=== PATIENT | female | born 1990 | race Caucasian/White ===

== ENCOUNTER 2016-09-20 18:14 | Emergency (ER) | payer OTHER ==
[2016-09-20] MEDS ORDERED: AZITHROMYCIN 250 MG TAB PO STA (19:15)
[2016-09-20] MEDS ORDERED: cefTRIAXone 250 MG VIAL IM STA (19:15)
[2016-09-20 19:17] LABS: Amorphous Sediment,Urine Occasional /hpf; Appearance,Urine Cloudy (Clear); Bacteria,Urine Rare /hpf; Bilirubin,Urine Negative (Negative); Glucose,Urine (UA) Negative (Negative); Ketones,Urine Negative (Negative); Leukocyte Esterase,Urine Negative (Negative); Mucus,Urine Few /hpf; Nitrite,Urine Negative (Negative); PH, Urine 5.5 (5.0-8.0); Particle Count 8822; Protein,Urine Negative (Negative); RBC,Urine 1 /hpf (0-5); Squamous Epithelial Cell,Urine 19 /hpf (0-4); UA Billing (MACRO vs. MICRO) MICRO; Urobilinogen,Urine <2.0 mg/dL (<2.0); WBC,Urine 23 /hpf (0-5)
--- NOTE | 2016-09-20 19:20 | ED ---
Female Urogenital HPI - General Chief complaint: Urogenital Stated complaint: possible STD Time Seen by Provider: 09/20/16 18:43 Source: patient, RN notes reviewed Mode of arrival: ambulatory Limitations: no limitations - History of Present Illness Initial comments: 25-year-old female presented emergency department with chief complaint of possible STD. Patient states that she had sexual and course a few days ago and her partner was positive for Chlamydia yesterday. Patient states is unprotected sex. Patient states she does have mild discharge at this time. Denies any dysuria or hematuria. Patient denies any abdominal pain and she has no history of STDs. Last Menstrual Period: 09/15/16 - Related Data Previous Rx's Medication Instructions Recorded Polymyxin B-Trimethoprim Ophth 2 drops RIGHT EYE Q4H 7 Days 01/02/16 [Polytrim Opthalmic] Allergies Allergy/AdvReac Type Severity Reaction Status Date / Time No Known Allergies Allergy Verified 09/20/16 18:42 Review of Systems ROS Statement: Those systems with pertinent positive or pertinent negative responses have been documented in the HPI. ROS Other: All systems not noted in ROS Statement are negative. Past Medical History Past Medical History: No Reported History History of Any Multi-Drug Resistant Organisms: None Reported Past Surgical History: Section Additional Past Surgical History / Comment(s): D&C Past Psychological History: ADD/ADHD, Depression Smoking Status: Never smoker Past Alcohol Use History: None Reported Past Drug Use History: None Reported General Exam Limitations: no limitations General appearance: alert, in no apparent distress Head exam: Present: atraumatic, normocephalic, normal inspection Respiratory exam: Present: normal lung sounds bilaterally. Absent: respiratory distress, wheezes, rales, rhonchi, stridor Cardiovascular Exam: Present: regular rate, normal rhythm, normal heart sounds. Absent: systolic murmur, diastolic murmur, rubs, gallop, clicks GI/Abdominal exam: Present: soft, normal bowel sounds. Absent: distended, tenderness, guarding, rebound, rigid External exam: Present: normal external exam, other (Exam performed with Cynthia MICHAEL) Speculum exam: Present: cervical discharge (Purulent slightly blood-tinged) Back exam: Absent: CVA tenderness (R), CVA tenderness (L) Skin exam: Present: warm, dry, intact, normal color. Absent: rash Course Vital Signs 09/20/16 18:38 Temperature 98.6 F Pulse Rate 75 Respiratory 16 Rate Blood Pressure 125/76 O2 Sat by Pulse 100 Oximetry Medical Decision Making - Medical Decision Making 25-year-old female presented emergency from for STD check. Patient was treated for Chlamydia diarrhea at this time. Patient did have cultures and urinalysis. Return parameters were discussed. - Lab Data Lab Results 09/20/16 Range/Units 19:01 Urine HCG, Qual Not Detected (Not Detectd) Disposition Clinical Impression: Cervical discharge, Exposure to STD Disposition: HOME SELF-CARE Condition: Stable Instructions: Chlamydia (ED), Sexually Transmitted Diseases (ED) Additional Instructions: Please return to the Emergency Department if symptoms worsen or any other concerns. Referrals: Hoang Hebert MD [Primary Care Provider] - 1-2 days Time of Disposition: 19:19
[2016-09-20 19:58] VITALS: BP 141/60; PULSE 74; RESP 18; TEMP 97
== END 2016-09-20 19:57 | disposition home or self-care (01) ==
LOC: EC 18:14
DX: N89.8 Other specified noninflammatory disorders of vagina (principal); Z20.2 Contact with and (suspected) exposure to infections with a predominantly sexual mode of transmission
CPT/HCPCS: 87591; 87491; 81001; 81025; 87808; 87086; 99283; 96372; J0696

== ENCOUNTER → 2017-02-21 | Outpatient (CLI) | payer OTHER | END | disposition home or self-care (01) | LOC: LABWHC1 10:56 | PROVIDERS: ATTEND Obstetrics & Gynecology | DX: N91.2 Amenorrhea, unspecified (principal) | CPT/HCPCS: 36415; 84702 ==

== ENCOUNTER → 2017-02-23 | Outpatient (CLI) | payer OTHER | END | disposition home or self-care (01) | LOC: LABWHC1 09:38 | PROVIDERS: ATTEND Obstetrics & Gynecology | DX: N92.6 Irregular menstruation, unspecified (principal) | CPT/HCPCS: 36415; 84702 ==

== ENCOUNTER 2017-02-28 15:57 | Emergency (ER) | payer OTHER ==
--- NOTE | 2017-02-28 18:25 | ED ---
General Adult HPI - General Chief complaint: Abdominal Pain Stated complaint: early /cramping Time Seen by Provider: 02/28/17 18:18 Source: patient, RN notes reviewed Mode of arrival: ambulatory Limitations: no limitations - History of Present Illness Initial comments: 26-year-old female who is a presents to the emergency Department chief complaint of cramping and . Patient states she's had the cramping for about 3 days. Patient states she's about 5 or 6 weeks . She denies any nausea vomiting any vaginal bleeding or change in discharge. She states that the cramping is just in the center of her abdomen. She states she's not having workup for at this time she is only for about a week. patient states that she was concerned due to the continued cramping so she thought that she should be evaluated. Patient denies any recent fever, chills, shortness of breath, chest pain, back pain, nausea vomiting, numbness or tingling, dysuria or hematuria, constipation or diarrhea, headaches or visual changes, or any other current symptoms. - Related Data Home Medications Medication Instructions Recorded Confirmed No Known Home Medications [No 02/28/17 02/28/17 Known Home Medications] Allergies Allergy/AdvReac Type Severity Reaction Status Date / Time No Known Allergies Allergy Verified 02/28/17 19:04 Review of Systems ROS Statement: Those systems with pertinent positive or pertinent negative responses have been documented in the HPI. ROS Other: All systems not noted in ROS Statement are negative. Past Medical History Past Medical History: No Reported History History of Any Multi-Drug Resistant Organisms: None Reported Past Surgical History: Section Additional Past Surgical History / Comment(s): D&C Past Psychological History: ADD/ADHD, Depression Smoking Status: Never smoker Past Alcohol Use History: None Reported Past Drug Use History: None Reported General Exam - General Exam Comments Initial Comments: General: The patient is awake and alert, in no distress, and does not appear acutely ill. Eye: Pupils are equal, round and reactive to light, extra-ocular movements are intact; there is normal conjunctiva bilaterally. No signs of icterus. Ears, nose, mouth and throat: There are moist mucous membranes. Neck: The neck is supple, there is no tenderness. Cardiovascular: There is a regular rate and rhythm. No murmur, rub or gallop is appreciated. Respiratory: Lungs are clear to auscultation, respirations are non-labored, breath sounds are equal. No wheezes, stridor, rales, or rhonchi. Gastrointestinal: Soft, non-distended, non-tender abdomen without masses or organomegaly noted. There is no rebound or guarding present. No CVA tenderness. Bowel sounds are unremarkable. Back: There is no tenderness to palpation in the midline. There is no obvious deformity. No rashes noted. Musculoskeletal: Normal ROM, no tenderness, There is no pedal edema. There is no calf tenderness or swelling. Sensation intact. Pulses equal bilaterally 2+. Neurological: CN II-XII intact, There are no obvious motor or sensory deficits. Coordination appears grossly intact. Speech is normal. Skin: Skin is warm and dry and no rashes or lesions are noted. Psychiatric: Cooperative, appropriate mood & affect, normal judgment. Limitations: no limitations Course Vital Signs 02/28/17 16:14 Temperature 97.9 F Pulse Rate 75 Respiratory 20 Rate Blood Pressure 121/70 O2 Sat by Pulse 100 Oximetry Medical Decision Making - Medical Decision Making 26-year-old female presents emergency department with chief complaint of cramping and . At this time patient's ultrasound is reviewed that is showing a gestational sac. At this time we did discuss close follow-up with OB/ [facility] we discussed return parameters we discussed possible outcomes we discussed all questions. Patient stated that she understood and she is given this plan. This time patient will be discharged home. - Lab Data Result diagrams: 02/28/17 18:35 02/28/17 18:35 Lab Results 02/28/17 02/28/17 02/28/17 Range/Units 18:25 18:35 18:35 WBC 9.8 (3.8-10.6) k/uL RBC 4.74 (3.80-5.40) m/uL Hgb 12.3 (11.4-16.0) gm/dL Hct 39.2 (34.0-46.0) % MCV 82.8 (80.0-100.0) fL MCH 26.0 (25.0-35.0) pg MCHC 31.4 (31.0-37.0) g/dL RDW 14.4 (11.5-15.5) % Plt Count 247 (150-450) k/uL Neutrophils % 70 % Lymphocytes % 22 % Monocytes % 5 % Eosinophils % 1 % Basophils % 0 % Neutrophils # 6.8 (1.3-7.7) k/uL Lymphocytes # 2.1 (1.0-4.8) k/uL Monocytes # 0.5 (0-1.0) k/uL Eosinophils # 0.1 (0-0.7) k/uL Basophils # 0.0 (0-0.2) k/uL Hypochromasia Slight Sodium (137-145) mmol/L Potassium (3.5-5.1) mmol/L Chloride (98-107) mmol/L Carbon Dioxide (22-30) mmol/L Anion Gap mmol/L BUN (7-17) mg/dL Creatinine (0.52-1.04) mg/dL Est GFR (MDRD) Af Amer (>60 ml/min/1.73 sqM) Est GFR (MDRD) Non-Af (>60 ml/min/1.73 sqM) Glucose (74-99) mg/dL Calcium (8.4-10.2) mg/dL Total Bilirubin (0.2-1.3) mg/dL AST (14-36) U/L ALT (9-52) U/L Alkaline Phosphatase (38-126) U/L Total Protein (6.3-8.2) g/dL Albumin (3.5-5.0) g/dL HCG, Quant mIU/mL Urine Color Yellow Urine Appearance Cloudy H (Clear) Urine pH 5.5 (5.0-8.0) Ur Specific Waddy 1.029 (1.001-1.035) Urine Protein Trace H (Negative) Urine Glucose (UA) Negative (Negative) Urine Ketones Negative (Negative) Urine Blood Negative (Negative) Urine Nitrite Negative (Negative) Urine Bilirubin Negative (Negative) Urine Urobilinogen 2.0 (<2.0) mg/dL Ur Leukocyte Esterase Small H (Negative) Urine RBC 2 (0-5) /hpf Urine WBC 2 (0-5) /hpf Ur Squamous Epith Cells 13 H (0-4) /hpf Urine Mucus Many H (None) /hpf Blood Type A Positive Blood Type Recheck A Pos 02/28/17 Range/Units 18:35 WBC (3.8-10.6) k/uL RBC (3.80-5.40) m/uL Hgb (11.4-16.0) gm/dL Hct (34.0-46.0) % MCV (80.0-100.0) fL MCH (25.0-35.0) pg MCHC (31.0-37.0) g/dL RDW (11.5-15.5) % Plt Count (150-450) k/uL Neutrophils % % Lymphocytes % % Monocytes % % Eosinophils % % Basophils % % Neutrophils # (1.3-7.7) k/uL Lymphocytes # (1.0-4.8) k/uL Monocytes # (0-1.0) k/uL Eosinophils # (0-0.7) k/uL Basophils # (0-0.2) k/uL Hypochromasia Sodium 141 (137-145) mmol/L Potassium 4.0 (3.5-5.1) mmol/L Chloride 105 (98-107) mmol/L Carbon Dioxide 26 (22-30) mmol/L Anion Gap 10 mmol/L BUN 13 (7-17) mg/dL Creatinine 0.68 (0.52-1.04) mg/dL Est GFR (MDRD) Af Amer >60 (>60 ml/min/1.73 sqM) Est GFR (MDRD) Non-Af >60 (>60 ml/min/1.73 sqM) Glucose 86 (74-99) mg/dL Calcium 9.3 (8.4-10.2) mg/dL Total Bilirubin 0.2 (0.2-1.3) mg/dL AST 19 (14-36) U/L ALT 29 (9-52) U/L Alkaline Phosphatase 83 (38-126) U/L Total Protein 7.2 (6.3-8.2) g/dL Albumin 4.0 (3.5-5.0) g/dL HCG, Quant 1677.4 mIU/mL Urine Color Urine Appearance (Clear) Urine pH (5.0-8.0) Ur Specific Waddy (1.001-1.035) Urine Protein (Negative) Urine Glucose (UA) (Negative) Urine Ketones (Negative) Urine Blood (Negative) Urine Nitrite (Negative) Urine Bilirubin (Negative) Urine Urobilinogen (<2.0) mg/dL Ur Leukocyte Esterase (Negative) Urine RBC (0-5) /hpf Urine WBC (0-5) /hpf Ur Squamous Epith Cells (0-4) /hpf Urine Mucus (None) /hpf Blood Type Blood Type Recheck - Radiology Data Radiology results: report reviewed, image reviewed Disposition Clinical Impression: Abdominal pain affecting Disposition: HOME SELF-CARE Condition: Stable Instructions: Abdominal Pain in (ED) Additional Instructions: Please use medication as discussed. Please follow up with family doctor if symptoms have not improved over the next two days. Please return to the emergency room if your symptoms increase or worsen or for any other concerns. Referrals: Mercy Hinojosa DO [Doctor of Osteopathic Medicine] - 1-2 days Time of Disposition: 19:46
[2017-02-28 18:41] LABS: Appearance,Urine Cloudy (Clear); Bilirubin,Urine Negative (Negative); Blood,Urine Negative (Negative); Color,Urine Yellow; Glucose,Urine (UA) Negative (Negative); Ketones,Urine Negative (Negative); Leukocyte Esterase,Urine Small (Negative); Mucus,Urine Many /hpf; Nitrite,Urine Negative (Negative); PH, Urine 5.5 (5.0-8.0); Protein,Urine Trace (Negative); RBC,Urine 2 /hpf (0-5); Specific Gravity,Urine 1.029 (1.001-1.035); Squamous Epithelial Cell,Urine 13 /hpf (0-4); WBC,Urine 2 /hpf (0-5)
[2017-02-28 18:45] LABS: Basophils % (A) 0 %; Eosinophils # (A) 0.1 k/uL (0-0.7); Eosinophils % (A) 1 %; HCT 39.2 % (34.0-46.0); HGB 12.3 gm/dL (11.4-16.0); Hypochromasia Slight; Lymphocytes # (A) 2.1 k/uL (1.0-4.8); Lymphocytes % (A) 22 %; MCHC 31.4 g/dL (31.0-37.0); MCV 82.8 fL (80.0-100.0); Monocytes # (A) 0.5 k/uL (0-1.0); Monocytes % (A) 5 %; Neutrophils # (A) 6.8 k/uL (1.3-7.7); Neutrophils % (A) 70 %; Platelet Count 247 k/uL (150-450); RBC 4.74 m/uL (3.80-5.40); RDW 14.4 % (11.5-15.5); WBC 9.8 k/uL (3.8-10.6)
[2017-02-28 18:58] LABS: ALT 29 U/L (9-52); AST 19 U/L (14-36); Alkaline Phosphatase 83 U/L (38-126); Anion Gap 10 mmol/L; Blood Urea Nitrogen 13 mg/dL (7-17); Calcium 9.3 mg/dL (8.4-10.2); Carbon Dioxide 26 mmol/L (22-30); Chloride 105 mmol/L (98-107); Glucose 86 mg/dL (74-99); Sodium 141 mmol/L (137-145); Total Bilirubin 0.2 mg/dL (0.2-1.3); Total Protein 7.2 g/dL (6.3-8.2)
[2017-02-28 19:15] LABS: HCG,Quantitative Serum 1677.4 mIU/mL
--- NOTE | 2017-02-28 19:44 | US ---
EXAMINATION TYPE: US OB <=14 wks transvag DATE OF EXAM: 02/28/2017 CLINICAL HISTORY: Pain. Cramping EXAM PERFORMED: Transvaginal (TV) and Transabdominal (TA) COMPARISON: NONE EXAM MEASUREMENTS: GESTATIONAL AGE / DATING Physician Established: Not yet established Dates by LMP: ( 6 weeks/3 days) EDC: 10/21/2017 Dates by First Scan: No previous this is first scan Dates by Current Scan for: Unable to date by today's study MATERNAL ANATOMY Uterus: 8.8 x 3.0 x 6.4 cm Right Ovary: 3.0 x 1.2 x 2.5 cm Post CDS / Adnexa: wnl Presence of free fluid: wnl Presence of corpus luteal cyst: no GESTATION / SURVEY CRL: Not seen MSD: 0.46cm. Too small to calculate dates at this time. ) Yolk Sac (normal less than 6mm): 0.12cm IUP: No IUP seen at this time Date of LMP: Beta HcG (if available): Not available at this time IMPRESSION: GESTATIONAL SAC VISUALIZED; NO POLE SEEN AT THIS TIME; THICKENED ENDOMETRIUM WITH FLUID SEEN WI THIN MEASURING 10MM.
[2017-02-28 19:46] VITALS: BP 115/57; PULSE 84; RESP 18; TEMP 97.6
== END 2017-02-28 20:26 | disposition home or self-care (01) ==
LOC: EC 15:57
DX: O99.89 Other specified diseases and conditions complicating pregnancy, childbirth and the puerperium (principal); R10.9 Unspecified abdominal pain; Z3A.01 Less than 8 weeks gestation of pregnancy; Z98.890 Other specified postprocedural states
CPT/HCPCS: 36415; 76801; 76817; 80053; 81001; 84702; 85025; 86900; 86901; 87086; 99284

== ENCOUNTER → 2017-03-13 | Outpatient (CLI) | payer OTHER ==
--- NOTE | 2017-03-13 11:50 | US ---
EXAMINATION TYPE: US OB <=14 wks transvag DATE OF EXAM: 03/13/2017 COMPARISON: NONE CLINICAL HISTORY: O46.91 Spotting first trimester. Spotting EXAM PERFORMED: Transvaginal (TV) and Transabdominal (TA) EXAM MEASUREMENTS: GESTATIONAL AGE / DATING Physician Established: Not yet established Dates by LMP: (8 weeks/2 days) EDC: 10/21/17 Dates by First Scan: unable to date on prior exam Dates by Current Scan for: (6 weeks/3 days) MATERNAL ANATOMY Uterus: 10.1 x 4.8 x 5.3cm Right Ovary: 4.1 x 2.7 x 1.7cm Left Ovary: unable to visualize Post CDS / Adnexa: wnl Presence of free fluid: no Presence of corpus luteal cyst: hypoechoic area right ovary = 1.8 x 1.4 x 1.4cm Presence of subchorionic bleed: yes, inferior to GS = 1.1cm GESTATION / SURVEY CRL: 0.6cm (6 weeks/3 days) Yolk Sac (normal less than 6mm): 0.3cm Heart Rate: unable to detect at this time IUP: probable Demise Date of LMP: 01/14/17 Beta HcG (if available): Not available at this time IMPRESSION: GS appears to be located within OSMAR. Possible pole noted, unable to detect heart tones at this time. Subchorionic bleed inferior to GS. Correlate clinically with serial beta hCG and/or ultr asound.
== END | disposition home or self-care (01) ==
LOC: RADUSWWP 10:57
PROVIDERS: ATTEND Obstetrics & Gynecology
DX: O20.8 Other hemorrhage in early pregnancy (principal); Z3A.00 Weeks of gestation of pregnancy not specified
CPT/HCPCS: 76801; 76817; 84702

== ENCOUNTER → 2017-03-15 | Outpatient (CLI) | payer OTHER | END | disposition home or self-care (01) | LOC: LABWHC1 11:37 | PROVIDERS: ATTEND Obstetrics & Gynecology | DX: Z34.80 Encounter for supervision of other normal pregnancy, unspecified trimester (principal) | CPT/HCPCS: 36415; 84702 ==

== ENCOUNTER → 2017-03-19 | Outpatient (CLI) | payer OTHER | END | disposition home or self-care (01) | LOC: LABWHC1 10:57 | PROVIDERS: ATTEND Obstetrics & Gynecology | DX: Z34.80 Encounter for supervision of other normal pregnancy, unspecified trimester (principal); Z3A.00 Weeks of gestation of pregnancy not specified | CPT/HCPCS: 36415; 84702 ==